=== PATIENT | male | born 1960 | race Caucasian/White ===

== ENCOUNTER 2023-03-26 14:12 | Outpatient (AMB) | payer BC, SELFPAY ==
--- NOTE | 2023-03-26 14:24 | A.SPINEOV_ITS ---
Intake Intake Visit Reasons: Radiculopathu Intake Note: Mr. Whitman is here today c/o low back pain. MRI done @ [place]. [employer] Required: No Assessment & Plan Assessment & Plan (1) Lumbar disc herniation: Code(s): M51.26 - Other intervertebral disc displacement, lumbar region Plan Dear Tien, Thank you for referring Mr Buck to our office today. 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 He tells me that the symptoms started about 3 months ago when he was helping someone push a car that had stalled out. He knows the symptoms and they were quite severe in the beginning. They run down his right leg into his buttock, into his posterior thigh and give him numbness on the bottom of his foot. Fairly classic for S1 radiculopathy. He has been on ibuprofen for the last few weeks and it seems to feel better but he is a little worried about taking that long-term. He tried Tylenol for while but that did not help. His MRI done at [facility] shows a herniated disc on the right at L5-S1. He has not yet done any dedicated conservative treatment. 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 He seems to be feeling better with ibuprofen but is worried about taking it long-term. He has been on 800 mg 3 times a day now for 2 weeks. I urged him to use caution with this and told him I think that at this point he needs to start weaning off of that. I encouraged him to take Tylenol as an alternative. I gave him a referral with PT because he will need that if he gets to the point of surgery. I told to come back and see us in 6 weeks after is completed PT and been off Motrin we can re-evaluate to see if he would like to do surgery. I did briefly described the procedure microdiskectomy to him and introduced him to Dr. Turner. Thank you for allowing us to care for your patient. The total time spent with this visit with this patient was 45 minutes reviewing history, physical exam, lumbar imaging review, and implementation of treatment plan or further diagnostic testing Tone Turner MD,PhD [facility] Orders: Orders PT Evaluation and Treatment Today M51.26 - Other intervertebral disc displacement, lumbar region Coding Level of Care Code New Pt Level 4 (35455) Diagnoses Lumbar disc herniation M51.26
== END 2023-03-26 15:07 | disposition home or self-care (01) ==
PROVIDERS: PCP Internal Medicine; Referring Provider Physician Assistant; Visit Provider Physician Assistant
DX: M51.26 Other intervertebral disc displacement, lumbar region (principal)
CPT/HCPCS: 99204

== ENCOUNTER → 2023-03-26 14:12 | Outpatient (BNVA) | payer BC, SELFPAY | PROVIDERS: PCP Internal Medicine; Visit Provider Physician Assistant ==

== ENCOUNTER 2023-05-11 14:00 | Outpatient (RCR) | payer BC, SELFPAY ==
--- NOTE | 2023-04-29 11:18 | MHC.PT.EP ---
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 Pt presents to the office expressing sx began ~3 months ago after helping someone push a vehicle. Pt does express history of R sided low back pain which would come and go. Pt currently expressing intermittent radiation of sx into posterior thigh>heel consistent with S1 radiculopathy, however pt sx appear mild in nature and are not constant. Pt does have (+) slump testing and weakness of heel raise on R LE. Does express some R sided low back pain which is variable. Pt denies sleep disturbance and currently is not performing any form of structured HEP program for his back (does use recumbent bike and some free-weights). Pt will benefit from attending skilled PT services, therapist recommends twice weekly, pt electing for once weekly due to party demonstrator work schedule. Pt was initiated in prone extension lying>press up exercises with good tolerance. Pt has had MRI ([facility]- (+)HNP R L5/S1 and will be having a follow up after 6 weeks of PT to discuss outcomes of PT and hopefully avoid surgical intervention. Pt has been weaning himself from ibuprofen and has been using tylenol prn. Pt may be a candidate for lumbar mechanical traction in addition to HEP extension>flexion based stabilization tasks. Thank you for this referral. Frequency and Duration: The patient will be seen 1-2x/week Short Term Goals: 1. Centralize R heel sx to height of the knee. 2. Reduce presence of R heel sx to <2x/day. 3. Iniitate stabilization program for core. 4. Initiate log roll technique for bed mobility. 5. Demonstrate carryover of functional squat technique. [employer] Performer Goals: 1. I HEP. 2. Demonstrate proper body mechanics for lifting. 3. Negative lumbar instability testing (IR: (+) on R>L). 4. Negative slump testing. 5. No radiating LE sx on R LE. Treatment Plan: Modalities to reduce pain, spasms and effusion. Manual therapy to restore motion and function. Therapeutic exercise to improve strength and flexibility. Neuromuscular re-education for posture and balance. Therapeutic activities to return to functional activities of daily living. Electronically signed by: Natali PutnamPT, DPT Please sign and return to therapist. Thank you for your referral.
--- NOTE | 2023-05-04 14:15 | MHC.PT.EP ---
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 Pt presents to the office expressing sx began ~3 months ago after helping someone push a vehicle. Pt does express history of R sided low back pain which would come and go. Pt currently expressing intermittent radiation of sx into posterior thigh>heel consistent with S1 radiculopathy, however pt sx appear mild in nature and are not constant. Pt does have (+) slump testing and weakness of heel raise on R LE. Does express some R sided low back pain which is variable. Pt denies sleep disturbance and currently is not performing any form of structured HEP program for his back (does use recumbent bike and some free-weights). Pt will benefit from attending skilled PT services, therapist recommends twice weekly, pt electing for once weekly due to [employer] rep work schedule. Pt was initiated in prone extension lying>press up exercises with good tolerance. Pt has had MRI ([facility]- (+)HNP R L5/S1 and will be having a follow up after 6 weeks of PT to discuss outcomes of PT and hopefully avoid surgical intervention. Pt has been weaning himself from ibuprofen and has been using tylenol prn. Pt may be a candidate for lumbar mechanical traction in addition to HEP extension>flexion based stabilization tasks. Thank you for this referral. Frequency and Duration: The patient will be seen 1-2x/week Short Term Goals: 1. Centralize R heel sx to height of the knee. 2. Reduce presence of R heel sx to <2x/day. 3. Iniitate stabilization program for core. 4. Initiate log roll technique for bed mobility. 5. Demonstrate carryover of functional squat technique. Traffic Enumerator Goals: 1. I HEP. 2. Demonstrate proper body mechanics for lifting. 3. Negative lumbar instability testing (IR: (+) on R>L). 4. Negative slump testing. 5. No radiating LE sx on R LE. Treatment Plan: Modalities to reduce pain, spasms and effusion. Manual therapy to restore motion and function. Therapeutic exercise to improve strength and flexibility. Neuromuscular re-education for posture and balance. Therapeutic activities to return to functional activities of daily living. Electronically signed by: Natali PutnamPT, DPT Please sign and return to therapist. Thank you for your referral.
== END 2023-08-10 13:19 | disposition home or self-care (01) ==
LOC: HO.PTWFD 14:00
PROVIDERS: PCP Internal Medicine; Visit Provider Physician Assistant
DX: M51.26 Other intervertebral disc displacement, lumbar region (principal)
CPT/HCPCS: 97012; 97110; 97161; 97535